=== PATIENT | female | born 1980 | race Caucasian/White ===

== ENCOUNTER 2019-07-14 15:17 | Emergency (ER) | payer OTHER ==
--- NOTE | 2019-07-14 16:20 | NUR ---
Patient called, no answer.
--- NOTE | 2019-07-14 16:27 | NUR ---
Per registration, the patient told paramedics she did not wish to be seen and left without being seen.
== END 2019-07-14 16:27 | disposition left against medical advice (07) ==
LOC: SED 15:17
DX: F41.9 Anxiety disorder, unspecified (principal); Z53.21 Procedure and treatment not carried out due to patient leaving prior to being seen by health care provider